=== PATIENT | male | born 1975 | race Caucasian/White ===

== ENCOUNTER 2019-03-04 01:24 | Emergency (ER) | payer BC ==
[~2019-03-04] VITALS: Wt 81.8 kg
[~2019-03-04 01:24] MED LIST: CALCIUM 600600 M2 PO; LORTAB 5/500 501 TAB PO; MULTIPLE VITAMI1 CAP PO; NAPROSYN500 MG PO
[2019-03-04 01:29] VITALS: BP 135/84; TEMP 98.4
[2019-03-04] MEDS ORDERED: SUDAFED30 MG PO (02:26)
[2019-03-04 02:47] VITALS: PULSE 82
== END 2019-03-04 02:48 | disposition home or self-care (01) ==
LOC: COL.ER 01:24
DX: R09.81 Nasal congestion (principal)